=== PATIENT | female | born 1995 | race Two or more races ===

== ENCOUNTER 2018-01-20 14:48 | Emergency (ER) | payer OTHER ==
[~2018-01-20] VITALS: Ht 157.5 cm; Wt 58.1 kg
[2018-01-20] MEDS ORDERED: PRENATA CHEWAB1 EACH (15:50)
== END 2018-01-20 20:29 | disposition home or self-care (01) ==
LOC: ER 14:48
DX: O26.891 Other specified pregnancy related conditions, first trimester (principal); S40.012A Contusion of left shoulder, initial encounter; S50.02XA Contusion of left elbow, initial encounter; Z34.01 Encounter for supervision of normal first pregnancy, first trimester; W18.39XA Other fall on same level, initial encounter; Y93.89 Activity, other specified; Y92.098 Other place in other non-institutional residence as the place of occurrence of the external cause; Y99.8 Other external cause status